=== PATIENT | male | born 2000 | race African-American/Black ===

== ENCOUNTER 2021-07-28 00:17 | Emergency (ER) | payer BC ==
[~2021-07-28] VITALS: Ht 170.2 cm; Wt 64.0 kg
[2021-07-28] MEDS ORDERED: ONDANSETRON HCL 4MG/2ML INJ IV STA (01:30)
[2021-07-28] MEDS ORDERED: HALOPERIDOL LACTATE 5MG/ML VIAL IM ONE (01:30)
[2021-07-28] MEDS ORDERED: SODIUM CHLORIDE 0.9% 1,000 ML IV ONE (01:30)
[2021-07-28] MEDS ORDERED: FAMOTIDINE 20MG/2ML VIAL IV STA (01:30)
[2021-07-28 01:46] LABS: CHLORIDE 103 mEq/L (98-107)
[2021-07-28 01:48] LABS: BASOPHILS % 0.3 % (0.0-2.0); EOSINOPHILS % 0.1 % (0.0-5.0); HEMATOCRIT. 47.2 % (42.0-52.0); HEMOGLOBIN. 16.2 g/dL (14.0-18.0); LYMPHOCYTES % 10.8 % (20.0-50.0); MEAN CORPUSCULAR HEMOGLOBIN 31.9 pg (28.0-32.0); MEAN CORPUSCULAR VOLUME 92.9 fL (80.0-94.0); MEAN PLATELET VOLUME 8.2 fl (7.4-10.4); MONOCYTES % 3.5 % (2.0-8.0); NEUTROPHILS % 85.3 % (40.0-76.0); PLATELET 304 x1000/uL (130-400); RED BLOOD CELL COUNT 5.08 mill/uL (4.7-6.1); RED CELL DISTRIBUTION WIDTH 12.8 % (11.6-14.6)
[2021-07-28 01:50] LABS: CLARITY URINE CLEAR (CLEAR); COLOR URINE YELLOW (YELLOW); ETHANOL BLOOD < 10 mg/dL; KETONES URINE 3+ (NEGATIVE); LEUKOCYTE ESTERASE URINE NEGATIVE (NEGATIVE); NITRITE URINE NEGATIVE (NEGATIVE); OCCULT BLOOD URINE NEGATIVE (NEGATIVE); PROTEIN URINE NEGATIVE (NEGATIVE); SPECIFIC GRAVITY URINE 1.021 (1.005-1.030)
[2021-07-28 01:59] LABS: *AMPHETAMINES SCREEN URINE NEGATIVE (NEGATIVE); *BARBITURATES SCREEN URINE NEGATIVE (NEGATIVE); *BENZODIAZEPINES SCREEN URINE NEGATIVE (NEGATIVE); *COCAINE SCREEN URINE NEGATIVE (NEGATIVE); METHADONE URINE SCREEN NEGATIVE (NEGATIVE); OPIATES URINE SCREEN NEGATIVE (NEGATIVE); PHENCYCLIDINE URINE SCREEN NEGATIVE (NEGATIVE)
[2021-07-28 02:00] LABS: CANNABINOID URINE SCREEN PRESUMTIVE POSITIVE (NEGATIVE)
[2021-07-28 03:54] VITALS: BP 112/64
== END 2021-07-28 03:56 | disposition home or self-care (01) ==
LOC: ER 00:17
DX: F12.188 Cannabis abuse with other cannabis-induced disorder (principal); Z82.49 Family history of ischemic heart disease and other diseases of the circulatory system
CPT/HCPCS: 36415; 80053; 80305; 80320; 81003; 83690; 85025; 96361; 96372; 96374; 96375; 99284; J1630; J2405; J3490; J7030; G0480